=== PATIENT | male | born 1940 | race Caucasian/White ===

== ENCOUNTER 2018-05-27 07:46 | Day surgery (SDC) | payer OTHER ==
[2018-05-27] MEDS ORDERED: DIAZEPAM 5 MG TAB PO ONE (07:55)
[2018-05-27] MEDS ORDERED: ASPIRIN EC 325 MG TAB PO ONE (07:55)
[2018-05-27] MEDS ORDERED: FAMOTIDINE 20 MG TAB PO ONE (07:55)
[2018-05-27] MEDS ORDERED: diphenhydrAMINE 25 MG CAP PO ONE (07:55)
[2018-05-27] MEDS ORDERED: NS 1,000 ML IV ONE (07:55)
[2018-05-27 08:38] LABS: PLATELET COUNT 218 10^3/uL (150-400)
[2018-05-27 08:46] LABS: INR 1.1 (0.83-1.16); PROTIME(PATIENT) 14.4 SEC (12.0-15.0)
[2018-05-27] MEDS ORDERED: IOPAMIDOL (ISOVUE-370) 150 ML BTL IV ONE (09:08)
[2018-05-27] MEDS ORDERED: fentaNYL 100 MCG/2 ML INJ ONE (09:08)
[2018-05-27] MEDS ORDERED: LIDOCAINE 1% 300 MG/30 ML SDV ONE (09:08)
[2018-05-27] MEDS ORDERED: MIDAZOLAM 2 MG/2 ML VIAL ONE (09:08)
--- NOTE | 2018-05-27 09:08 | PDHPUP ---
History & Physical Update H&P update statement: This history and physical update is based on an assessment of the patient which was completed after admission or registration (within 24 hours), but prior to the surgery/procedure. H&P update: H&P reviewed & patient examined, no change in patient's condition since H&P completed
--- NOTE | 2018-05-27 09:09 | PDPROPOC ---
Sedation Plan of Care Sedation Plan of Care: vital signs stable, mental status noted, patient educated of risks, benefits, alternatives, patient can tolerate sedation ASA Classification: ASA 2 Planned drugs: fentanyl, midazolam Mallampati Score: Class 2 Mallampati Reference Image: Patient passed 3-3-2 rule?: Yes
[2018-05-27] MEDS ORDERED: ADENOSINE 90 MG/30 ML VIAL IV ONE (09:50)
[2018-05-27] MEDS ORDERED: BIVALIRUDIN 250 MG/5 ML VIAL IV ONE (09:50)
[2018-05-27] MEDS ORDERED: ONDANSETRON 4 MG/2 ML VIAL IVP PRN (10:18)
[2018-05-27] MEDS ORDERED: OXYCODONE/APAP 5/325 TAB PO PRN (10:18)
[2018-05-27] MEDS ORDERED: ATROPINE SULFATE 1 MG/10 ML SYR IVP PRN (10:18)
[2018-05-27] MEDS ORDERED: HYDROCODONE/APAP 5/325 TAB PO PRN (10:18)
[2018-05-27] MEDS ORDERED: NITROGLYCERIN 0.4 MG BTL SL PRN (10:18)
--- NOTE | 2018-05-27 14:04 | CPIP ---
DATE OF PROCEDURE: 05/27/2018 PROCEDURES: 1. Coronary angiography. 2. Left ventriculography. 3. Fractional flow reserve of the left anterior descending coronary artery. INDICATIONS: 1. Chest pain. 2. Abnormal nuclear stress test with inferior ischemia that is intermediate risk. ACCESS: Patient was prepped and draped in sterile fashion. 1% lidocaine was used to anesthetize the right inguinal region. A 6-Chinese introducer sheath was placed selectively into the right common fe moral artery via modified Seldinger technique. CORONARY ANGIOGRAPHY: A 6-Chinese JL4 was advanced to left main coronary artery and images obtained. The left main coronary artery bifurcated into an LAD and circumflex coronary arteries. The left gregoria n coronary artery appeared normal. The left anterior descending coronary artery gave rise to 3 diago nal branches. The left anterior descending coronary artery had a single discrete 50% to 70% stenosis in the proximal vessel. The remainder of the vessel is free of any significant disease. The diagon als appeared free of any significant disease. The circumflex coronary artery was a large vessel but was nondominant. Circumflex coronary artery gave rise to 3 OM branches. The circumflex coronary art saulo and its complement of OM branches had mild luminal irregularities. There was no stenosis greater than 15%. A 6-Chinese JR4 was advanced to the right coronary artery and images obtained. The right coronary artery was dominant. The right coronary artery had a discrete 20% stenosis in the midvessel . LEFT VENTRICULOGRAPHY: A 6-Chinese pigtail catheter was advanced in the left ventricle and images obt ained. Left ventricle was normal in size, had normal systolic function. Estimated ejection fraction was 65%. There were no segmental wall motion abnormalities. FFR of the left anterior descending coronary artery: A 6-Chinese JL4 was advanced to the left main co ronary artery and images obtained. Angiography confirmed the presence of an intermediate to high-gra de lesion involving the proximal left anterior descending coronary artery. The FFR wire was placed at the ostium of the JL4 catheter and equalized. The wire was then advanced across the lesion. FFR wa s obtained after IV adenosine infusion. The FFR was 0.86, indicating no flow limitation. The wire w as then withdrawn back to the catheter and followup FFR was 1.0, indicating no drift. COMPLICATIONS: None. CONCLUSIONS: 1. 50% to 70% stenosis in the proximal left anterior descending coronary artery with no evidence of flow limitation by fractional flow reserve. 2. Normal left ventricular size and systolic function. 3. Plan is for medical management. /[id number]/MODL
[2018-05-28] MEDS ORDERED: ASPIRIN 81 MG CHEWABLE TAB PO SCH (09:00)
[2018-05-28] MEDS ORDERED: TAMSULOSIN HCL 0.4 MG CAP PO SCH (09:00)
[2018-05-28] MEDS ORDERED: ASCORBIC ACID 500 MG TAB PO SCH (09:00)
--- NOTE | 2018-05-29 14:52 | CPEKG ---
Test Reason : OPEN Blood Pressure : / mmHG Vent. Rate : 063 BPM Atrial Rate : 063 BPM P-R Int : 170 ms QRS Dur : 093 ms QT Int : 409 ms P-R-T Axes : 074 032 055 degrees QTc Int : 419 ms Sinus rhythm Abnormal R-wave progression, early transition Confirmed by Willy Uribe [id number] on 05/29/2018 2:52:04 PM Referred By: Confirmed By:Willy Uribe
== END 2018-05-27 16:10 | disposition home or self-care (01) ==
LOC: FCATH 07:46
PROVIDERS: ATTEND Internal Medicine Cardiovascular Disease
DX: R07.9 Chest pain, unspecified (principal); R94.39 Abnormal result of other cardiovascular function study
CPT/HCPCS: 93005; 93458; 93571; C1769; C1887; J0153; J0583; J1644; J2250; J3010; Q9967